=== PATIENT | male | born 1980 | race Two or more races ===

== ENCOUNTER 2021-02-14 19:25 | Inpatient (IN) | payer MEDICARE, OTHER ==
[~2021-02-14] VITALS: Ht 182.9 cm; Wt 131.5 kg
[2021-02-14] MEDS ORDERED: cefTRIAXone 1GM/50ML D5W 50 ML IV ONE (20:00)
[2021-02-14 20:39] LABS: Basophils # (auto) 0 10 ^3/uL (0-0.2); Basophils % (auto) 0.4 % (0.0-2.0); Eosinophils # (auto) 0.2 10 ^3/uL (0-0.8); Eosinophils % (auto) 1.7 % (0.0-7.0); Hematocrit 39.4 % (41.0-53.0); Hemoglobin 13.2 g/dL (13.5-17.5); Lymphocytes # (auto) 1.1 10 ^3/uL (0.4-5.4); Lymphocytes % (auto) 12.2 % (10.0-50.0); Mean Corpuscular Hemoglobin 31.9 pg (28.0-32.0); Mean Corpuscular Hgb Conc. 33.4 g/dL (32.0-36.0); Mean Corpuscular Volume 95.4 fL (80.0-100.0); Monocytes # (auto) 0.3 10 ^3/uL (0-1.3); Monocytes % (auto) 3.8 % (0.0-12.0); Neutrophils # (auto) 7.5 10 ^3/uL (1.6-8.6); Neutrophils % (auto) 81.9 % (37.0-80.0); Nucleated Red Blood Cells % 0.4 %; Platelet Count (auto) 261 10^3/uL (140-450); Red Blood Cells 4.13 10^6/uL (4.5-5.90); Red Cell Distribution Width 14.9 % (11.8-14.3); White Blood Cell 9.1 10^3/uL (4.4-10.8)
[2021-02-14 20:57] LABS: Albumin 3.2 g/dL (3.4-5.0); Calcium 8.7 mg/dL (8.5-10.1); Magnesium 2.3 mg/dL (1.6-2.6)
[2021-02-14 21:00] LABS: Bilirubin, Total 0.8 mg/dL (0.2-1.0); Lactic Acid w/Reflex 2.2 mmol/L (0.4-2.0); Total Protein 8.3 g/dL (6.4-8.2)
[2021-02-14] MEDS ORDERED: NITROGLYCERIN 0.4 MG SL TAB SL PRN (21:30)
[2021-02-14] MEDS ORDERED: VANCOMYCIN 1GM/250ML 250 ML IV ONE (21:30)
[2021-02-14] MEDS ORDERED: MORPHINE SULF INJ 2 MG/ML SYRINGE 1ML IV PRN (21:30)
[2021-02-14] MEDS ORDERED: GABA300C10 PO (21:36)
[2021-02-14] MEDS ORDERED: ATOR10TA52 PO (21:36)
[2021-02-14] MEDS ORDERED: CALC667C PO (21:36)
[2021-02-14] MEDS ORDERED: DULO1CAP6 PO (21:36)
[2021-02-14] MEDS ORDERED: LEV25T PO (21:36)
[2021-02-14] MEDS ORDERED: LISI-646 PO (21:36)
[2021-02-14] MEDS ORDERED: DEXTROSE (50%) 50ML SYRG IV PRN (21:45)
[2021-02-14] MEDS ORDERED: IOHEXOL 300 MG/ML 100ML BOTTLE IJ ONE (21:54)
[2021-02-14] MEDS ORDERED: FAMOTIDINE 20 MG TAB PO SCH (22:00)
[2021-02-14] MEDS ORDERED: GABAPENTIN 300 MG CAP PO SCH (22:00)
[2021-02-14 22:43] LABS: INR 1.09 (0.9-1.15); Partial Thromboplastin Time 31.1 sec (23.0-31.2)
[2021-02-14] MEDS: ATORVASTATIN 20 MG TAB PO SCH (23:53)
[2021-02-14] MEDS: GABAPENTIN 300 MG CAP PO SCH (23:54)
[2021-02-14] MEDS: LISINOPRIL 20 MG TAB PO SCH (23:54)
[2021-02-15] VITALS (23 sets, daily range): BP systolic 100–169; BP diastolic 20–87
[2021-02-15] MEDS: ACCU-CHEK COMFORT CURVE STRIP VI SCH ×5 (00:29→23:55)
[2021-02-15] MEDS: InsuLIN REG 1unit/0.01ml Soln (100units/ml) SC SCH ×5 (00:33→23:56)
[2021-02-15] MEDS: CALCIUM ACETATE 667 MG CAP PO SCH ×4 (00:34→17:06)
[2021-02-15] MEDS: LEVOTHYROXINE SODIUM 25 MCG TAB PO SCH (07:00)
[2021-02-15 07:12] LABS: Basophils # (auto) 0.1 10 ^3/uL (0-0.2); Eosinophils # (auto) 0.3 10 ^3/uL (0-0.8); Eosinophils % (auto) 2.7 % (0.0-7.0); Hematocrit 32.5 % (41.0-53.0); Hemoglobin 10.7 g/dL (13.5-17.5); Lymphocytes # (auto) 1.6 10 ^3/uL (0.4-5.4); Lymphocytes % (auto) 17.3 % (10.0-50.0); Mean Corpuscular Hgb Conc. 32.8 g/dL (32.0-36.0); Mean Corpuscular Volume 94.4 fL (80.0-100.0); Monocytes # (auto) 0.7 10 ^3/uL (0-1.3); Monocytes % (auto) 7.7 % (0.0-12.0); Neutrophils # (auto) 6.7 10 ^3/uL (1.6-8.6); Neutrophils % (auto) 71.3 % (37.0-80.0); Nucleated Red Blood Cells % 0.3 %; Platelet Count (auto) 237 10^3/uL (140-450); Red Blood Cells 3.44 10^6/uL (4.5-5.90); White Blood Cell 9.4 10^3/uL (4.4-10.8)
[2021-02-15 07:30] LABS: Albumin 2.7 g/dL (3.4-5.0); Calcium 8.8 mg/dL (8.5-10.1)
[2021-02-15 07:34] LABS: BUN/Creatinine Ratio 4.8; Total Protein 6.9 g/dL (6.4-8.2)
[2021-02-15] MEDS: cefTRIAXone 1GM/50ML D5W 50 ML IV SCH (08:40)
[2021-02-15] MEDS: DULoxetine HCL 30 MG CAP PO SCH (10:17)
[2021-02-15] MEDS: GABAPENTIN 300 MG CAP PO SCH ×2 (10:18→22:08)
[2021-02-15] MEDS: FAMOTIDINE 20 MG TAB PO SCH (10:19)
[2021-02-15] MEDS: LISINOPRIL 20 MG TAB PO SCH ×2 (10:21→22:08)
[2021-02-15] MEDS ORDERED: DEXTROSE (50%) 50ML SYRG IV PRN ×2 (12:00→14:30)
[2021-02-15] MEDS: AZITHROMYCIN 500MG/ 250ML 250 ML IV SCH (13:24)
[2021-02-15] MEDS: ATORVASTATIN 20 MG TAB PO SCH (22:07)
[2021-02-16] VITALS (27 sets, daily range): BP systolic 135–183; BP diastolic 23–72
[2021-02-16] MEDS: InsuLIN REG 1unit/0.01ml Soln (100units/ml) SC SCH ×4 (06:00→23:51)
[2021-02-16] MEDS: ACCU-CHEK COMFORT CURVE STRIP VI SCH ×4 (06:08→23:51)
[2021-02-16] MEDS ORDERED: SODIUM CHL 0.9% 1000 ML BAG XX ONE (07:00)
[2021-02-16] MEDS: LEVOTHYROXINE SODIUM 25 MCG TAB PO SCH (07:00)
[2021-02-16 07:31] LABS: Hemoglobin 11.4 g/dL (13.5-17.5)
[2021-02-16 07:34] LABS: Calcium 8.9 mg/dL (8.5-10.1); Potassium 4.7 mmol/L (3.5-5.1)
[2021-02-16 07:38] LABS: BUN/Creatinine Ratio 5.6; Bilirubin, Total 0.4 mg/dL (0.2-1.0); Total Protein 7.5 g/dL (6.4-8.2)
[2021-02-16] MEDS: CALCIUM ACETATE 667 MG CAP PO SCH ×3 (09:00→18:20)
[2021-02-16] MEDS: cefTRIAXone 1GM/50ML D5W 50 ML IV SCH (09:01)
[2021-02-16] MEDS: GABAPENTIN 300 MG CAP PO SCH ×2 (09:05→21:23)
[2021-02-16] MEDS: FAMOTIDINE 20 MG TAB PO SCH (09:06)
[2021-02-16] MEDS: LISINOPRIL 20 MG TAB PO SCH ×2 (09:06→21:23)
[2021-02-16] MEDS: DULoxetine HCL 30 MG CAP PO SCH (09:07)
[2021-02-16] MEDS: AZITHROMYCIN 500MG/ 250ML 250 ML IV SCH (09:52)
[2021-02-16] MEDS: hydrALAZINE HCL 20 MG/ML VL IV PRN (12:20)
[2021-02-16] MEDS ORDERED: VANCOMYCIN PER PHARMACY 0 MG IV SCH ×2 (14:15→16:00)
[2021-02-16] MEDS ORDERED: ONDANSETRON HCL 4 MG/2 ML VIAL IV ONE (15:02)
[2021-02-16] MEDS ORDERED: VANCOMYCIN 1GM/250ML 250 ML IV ONE ×2 (16:00→18:00)
[2021-02-16] MEDS: BUPIVACAINE 0.25% INJ 50ML VIAL ONE ×2 (16:10→17:14)
[2021-02-16] MEDS: LIDOCAINE 1% HCL (LOCAL ANESTH.) INJ 20ML MDV ONE ×2 (16:10→17:14)
[2021-02-16] MEDS ORDERED: fentaNYL CITRATE 100 MCG/2 ML VL ONE (16:25)
[2021-02-16] MEDS ORDERED: MIDAZOLAM HCL 1MG/1ML-2 ML VIAL ONE (16:26)
[2021-02-16] MEDS ORDERED: DexAMETHasone SOD PHOS 10MG/1ML VIAL INJ ONE (16:41)
[2021-02-16] MEDS ORDERED: MORPHINE SULF INJ 2 MG/ML SYRINGE 1ML IV PRN (17:15)
[2021-02-16] MEDS ORDERED: ACETAMINOPHEN/CODEINE#3 (300/30mg) TAB PO PRN ×2 (17:15)
[2021-02-16] MEDS ORDERED: MIDAZOLAM HCL 1MG/1ML-2 ML VIAL IV PRN (17:30)
[2021-02-16] MEDS ORDERED: ePHEDrine SULFATE 50 MG/ML AMP IV PRN (17:30)
[2021-02-16] MEDS ORDERED: ACCU-CHEK COMFORT CURVE STRIP VI ONE (17:30)
[2021-02-16] MEDS ORDERED: ONDANSETRON HCL 4 MG/2 ML VIAL IV PRN (17:30)
[2021-02-16] MEDS ORDERED: LABETALOL HCL 5 MG/ML 4ML SYRINGE IV PRN (17:30)
[2021-02-16] MEDS ORDERED: PROPOFOL 10 MG/ML 20 ML IV ONE (17:31)
[2021-02-16] MEDS ORDERED: EPOETIN ALFA-EPBX 10,000 UNIT/1ML VIAL SC ONE (21:00)
[2021-02-16] MEDS: ATORVASTATIN 20 MG TAB PO SCH (21:22)
[2021-02-16] MEDS ORDERED: PIPERACILLIN-TAZOB 2.25GM 50 ML IV SCH (22:00)
[2021-02-17] VITALS (16 sets, daily range): BP systolic 115–195; BP diastolic 23–65
[2021-02-17] MEDS: hydrALAZINE HCL 20 MG/ML VL IV PRN ×2 (01:03→10:22)
[2021-02-17] MEDS: InsuLIN REG 1unit/0.01ml Soln (100units/ml) SC SCH ×2 (06:00→11:47)
[2021-02-17 06:03] LABS: Basophils # (auto) 0 10 ^3/uL (0-0.2); Basophils % (auto) 0.2 % (0.0-2.0); Eosinophils # (auto) 0 10 ^3/uL (0-0.8); Hematocrit 35.3 % (41.0-53.0); Hemoglobin 11.8 g/dL (13.5-17.5); Lymphocytes # (auto) 0.5 10 ^3/uL (0.4-5.4); Lymphocytes % (auto) 6.6 % (10.0-50.0); Mean Corpuscular Hemoglobin 32.1 pg (28.0-32.0); Mean Corpuscular Hgb Conc. 33.6 g/dL (32.0-36.0); Mean Corpuscular Volume 95.6 fL (80.0-100.0); Monocytes # (auto) 0.1 10 ^3/uL (0-1.3); Monocytes % (auto) 1.1 % (0.0-12.0); Neutrophils # (auto) 6.4 10 ^3/uL (1.6-8.6); Neutrophils % (auto) 92.1 % (37.0-80.0); Platelet Count (auto) 237 10^3/uL (140-450); Red Blood Cells 3.69 10^6/uL (4.5-5.90); Red Cell Distribution Width 14.8 % (11.8-14.3)
[2021-02-17] MEDS: ACCU-CHEK COMFORT CURVE STRIP VI SCH ×3 (06:27→18:00)
[2021-02-17] MEDS: LEVOTHYROXINE SODIUM 25 MCG TAB PO SCH (06:28)
[2021-02-17 06:35] LABS: Calcium 8.8 mg/dL (8.5-10.1)
[2021-02-17 06:36] LABS: BUN/Creatinine Ratio 6.8
[2021-02-17 06:41] LABS: Potassium 5.6 mmol/L (3.5-5.1)
[2021-02-17] MEDS: CALCIUM ACETATE 667 MG CAP PO SCH ×3 (07:56→18:32)
[2021-02-17] MEDS: DULoxetine HCL 30 MG CAP PO SCH (09:33)
[2021-02-17] MEDS: GABAPENTIN 300 MG CAP PO SCH (09:33)
[2021-02-17] MEDS: FAMOTIDINE 20 MG TAB PO SCH (09:34)
[2021-02-17] MEDS: LISINOPRIL 20 MG TAB PO SCH (09:34)
[2021-02-17] MEDS ORDERED: InsuLIN REG 1unit/0.01ml Soln (100units/ml) SC SCH ×2 (18:00→22:00)
[2021-02-17] MEDS ORDERED: ACCU-CHEK COMFORT CURVE STRIP VI SCH (18:00)
[2021-02-18] MEDS ORDERED: SODIUM CHL 0.9% 1000 ML BAG XX ONE (07:00)
== END 2021-02-17 21:31 | disposition home health service (06) | DRG 907 ==
LOC: EDUNIT# 19:25 → EDBD 19:25 → ER 19:29 → TELE 19:30 → TELE-WESTW 02-15 05:27 → ICU CENTRL 02-15 13:48 → DOU IN ICU 02-15 15:05 → TELE-WESTW 02-17 14:51
PROVIDERS: ADMIT Nurse Practitioner; ATTEND Nurse Practitioner
PROC: 5A09357 Assistance with Respiratory Ventilation, Less than 24 Consecutive Hours, Continuous Positive Airway Pressure (ICD-10-PCS; 2021-02-15)
PROC: 0W9F0ZZ Drainage of Abdominal Wall, Open Approach (ICD-10-PCS; 2021-02-16)
PROC: 5A1D70Z Performance of Urinary Filtration, Intermittent, Less than 6 Hours Per Day (ICD-10-PCS; 2021-02-16)
PROC: 0WPG03Z Removal of Infusion Device from Peritoneal Cavity, Open Approach (ICD-10-PCS; principal; 2021-02-16 16:35)
PROC: 5A09357 Assistance with Respiratory Ventilation, Less than 24 Consecutive Hours, Continuous Positive Airway Pressure (ICD-10-PCS; 2021-02-17)
DX: T85.71XA Infection and inflammatory reaction due to peritoneal dialysis catheter, initial encounter (principal); A41.9 Sepsis, unspecified organism; N18.6 End stage renal disease; J96.21 Acute and chronic respiratory failure with hypoxia; J96.22 Acute and chronic respiratory failure with hypercapnia; L02.211 Cutaneous abscess of abdominal wall; L03.311 Cellulitis of abdominal wall; E87.1 Hypo-osmolality and hyponatremia; I12.0 Hypertensive chronic kidney disease with stage 5 chronic kidney disease or end stage renal disease; E87.2 Acidosis; T85.611A Breakdown (mechanical) of intraperitoneal dialysis catheter, initial encounter; D63.1 Anemia in chronic kidney disease; E66.01 Morbid (severe) obesity due to excess calories; Z99.2 Dependence on renal dialysis; E11.22 Type 2 diabetes mellitus with diabetic chronic kidney disease; E11.40 Type 2 diabetes mellitus with diabetic neuropathy, unspecified; I25.10 Atherosclerotic heart disease of native coronary artery without angina pectoris; E88.09 Other disorders of plasma-protein metabolism, not elsewhere classified; Y83.8 Other surgical procedures as the cause of abnormal reaction of the patient, or of later complication, without mention of misadventure at the time of the procedure; Z20.822 Contact with and (suspected) exposure to COVID-19; E03.9 Hypothyroidism, unspecified; Z68.39 Body mass index [BMI] 39.0-39.9, adult; Z88.8 Allergy status to other drugs, medicaments and biological substances; Y92.89 Other specified places as the place of occurrence of the external cause; E11.65 Type 2 diabetes mellitus with hyperglycemia
CPT/HCPCS: 36415; 36600; 70450; 71045; 74177; 80048; 80053; 80061; 80202; 82140; 82728; 82805; 82962; 83036; 83540; 83550; 83605; 83735; 84443; 85014; 85018; 85025; 85610; 85730; 87040; 87070; 87075; 87077; 87081; 87186; 87205; 87426; 90935; 93005; 94660; 96365; 96367; G0378; J0696; J1100; J1642; J1815; J2001; J2250; J2405; J2704; J3490